=== PATIENT | female | born 1975 | race Caucasian/White ===

== ENCOUNTER 2022-06-04 09:10 | Emergency (ER) | payer OTHER ==
[~2022-06-04] VITALS: Ht 170.2 cm; Wt 89.8 kg
[2022-06-04 09:13] VITALS: BP 143/75
--- NOTE | 2022-06-04 09:16 | NUR ---
Pt ambulated to bed 04.
--- NOTE | 2022-06-04 09:46 | NUR ---
Dr Dhillon at bedside for evaluation
[2022-06-04] MEDS ORDERED: KETOROLAC 60 MG/2 ML VIAL IM ONE (09:50)
--- NOTE | 2022-06-04 09:51 | NUR ---
46 y/o female c/o left hip pain s/p fall last night while walking dog. Denies injury to head or LOC. Pain 5/10, constant, dull ache at rest, worsening with ambulation or when bearing weight. Abrasion observed to left leg, left elbow, and left knuckles, dry and scabbing over. Denies taking medication at home for pain. NKA PMH: Denies
--- NOTE | 2022-06-04 09:56 | NUR ---
xray at bedside
[2022-06-04] MEDS ORDERED: IBUP-2213 PO (11:09)
[2022-06-04 11:21] VITALS: BP 143/75
--- NOTE | 2022-06-04 11:21 | NUR ---
Patient discharged with v/s stable. Written and verbal after care instructions about hip pain given and explained. Patient alert, oriented and verbalized understanding of instructions. Ambulatory with steady gait. All questions addressed prior to discharge. ID band removed. Patient advised to follow up with PMD. Rx of Ibuprofen given. Patient educated on indication of medication including possible reaction and side effects. Opportunity to ask questions provided and answered.
== END 2022-06-04 11:20 | disposition home or self-care (01) ==
LOC: MED 09:10
DX: S70.02XA Contusion of left hip, initial encounter (principal); Z98.890 Other specified postprocedural states; W19.XXXA Unspecified fall, initial encounter; Y93.89 Activity, other specified; Y92.89 Other specified places as the place of occurrence of the external cause; Y99.8 Other external cause status
CPT/HCPCS: 73502; 96372; 99283; J1885